=== PATIENT | male | born 1980 | race Caucasian/White ===

== ENCOUNTER 2018-02-27 09:37 | Emergency (ER) | payer SELFPAY, MEDICAID, OTHER ==
[2018-02-27] MEDS: PERCOCET 5MG/325MG TAB PO (10:41)
[2018-02-27] MEDS: METHOCARBAMOL 750 MG TAB PO (10:41)
== END 2018-02-27 12:35 | disposition home or self-care (01) ==
LOC: M ED 09:37
DX: M54.41 Lumbago with sciatica, right side (principal); Z88.0 Allergy status to penicillin; F17.210 Nicotine dependence, cigarettes, uncomplicated
CPT/HCPCS: 99283